=== PATIENT | female | born 1995 | race African-American/Black ===

== ENCOUNTER 2023-08-11 08:36 | Emergency (ER) | payer OTHER, SELFPAY ==
[2023-08-11] MEDS ORDERED: Metoclopramide HCl 10 MG/2 ML VIAL ONE (09:30)
[2023-08-11] MEDS ORDERED: diphenhydrAMINE 50 MG/ML VIAL ONE (09:30)
[2023-08-11 10:10] LABS: Bacteria/HPF None Seen HPF (None Seen); Bilirubin Negative (Negative); Blood, Urine Negative (Negative); CAUTI Indications for Culture Pregnancy; Clarity Clear (Clear); Glucose, Urine (Dipstick) Normal (Negative); Ketone, Urine Negative (Negative); Leukocyte Negative Leu/uL (Negative); Nitrite Negative (Negative); Protein, Urine (Dipstick) Negative (Neg-Trace); RBC/HPF 0-3 HPF (0-3); Specific Gravity, Urine 1.028 (1.002-1.036); Urobilinogen 3 mg/dL (Less than 2); WBC/HPF 0-3 HPF (0-3); pH, Urine 6.5 (5.0-9.0)
[2023-08-11 10:12] LABS: Urine Culture Reflex Yes Yes
[2023-08-11 12:50] LABS: Chlamydia by PCR, Vaginal Swab Not Detected (NotDetected); GC by PCR, Vaginal Swab Not Detected (NotDetected)
== END 2023-08-11 10:52 | disposition home or self-care (01) ==
LOC: ERS 08:36
DX: O99.891 Other specified diseases and conditions complicating pregnancy (principal); R51.9 Headache, unspecified; Z3A.15 15 weeks gestation of pregnancy
CPT/HCPCS: 81001; 87077; 87086; 87480; 87491; 87510; 87591; 87660; 96365; 96375; J1200; J2765